=== PATIENT | female | born 1985 | race Caucasian/White ===

== ENCOUNTER 2018-03-09 14:03 | Outpatient (CLI) | payer OTHER | END 2018-03-09 14:14 | disposition home or self-care (01) | LOC: RAD 501 14:03 | DX: M25.561 Pain in right knee (principal); M25.571 Pain in right ankle and joints of right foot; M25.572 Pain in left ankle and joints of left foot ==

== ENCOUNTER → 2021-12-01 | Emergency (ER) | payer OTHER ==
[~2021-12-01] VITALS: Ht 157.5 cm; Wt 84.8 kg
[~2021-12-01] MED LIST: AMOX1TAB5 PO; DICLOFENAC POTA50 MG PO; INTESTINEX680 M1 PO; NORFLEX100MG PO
== END | disposition home or self-care (01) ==
LOC: ER 01:43
DX: S00.83XA Contusion of other part of head, initial encounter (principal); V49.9XXA Car occupant (driver) (passenger) injured in unspecified traffic accident, initial encounter; Y93.9 Activity, unspecified; Y92.413 State road as the place of occurrence of the external cause; S69.92XA Unspecified injury of left wrist, hand and finger(s), initial encounter; S69.91XA Unspecified injury of right wrist, hand and finger(s), initial encounter; S81.021A Laceration with foreign body, right knee, initial encounter; S89.92XA Unspecified injury of left lower leg, initial encounter; S99.911A Unspecified injury of right ankle, initial encounter; M54.2 Cervicalgia